=== PATIENT | female | born 1935 | race Caucasian/White ===

== ENCOUNTER 2016-07-17 11:29 | Emergency (ER) | payer MEDICARE, OTHER ==
[2016-07-17 13:51] VITALS: BP 135/62
[2016-07-17] MEDS ORDERED: HYDROcodone/ACETAMIN 5-325 MG* 1 TAB PO ONE (14:37)
--- NOTE | 2016-07-17 14:43 | UC ---
Shoulder Pain HPI - HPI Summary HPI Summary: fell onto left shoulder yesterday, slipped on ice. Progressive pain since then. Hurts to abduct in particular, but all movement hurts. No swelling or bruising. - History of Current Complaint Chief Complaint: UCUpperExtremity Stated Complaint: LEFT ARM PAIN-FALL Time Seen by Provider: 07/17/16 14:33 Hx Obtained From: Patient ?: No Onset/Duration: Gradual Onset Timing: Constant Severity Initially: Moderate Severity Currently: Moderate Character: Dull, Aching, Spasmodic, Stiffness Aggravating Factor(s): Movement, Lifting, Flexion, External Rotation Alleviating Factor(s): Rest Associated Signs And Symptoms: Positive: Weakness. Negative: Swelling, Redness , Bruising Related History: Dominant Hand Right - Risk Factors Non-Orthopedic Risk Factor: Negative DVT Risk Factors: Negative Septic Arthritis Risk Factor: Negative - Allergies/Home Medications Allergies/Adverse Reactions: Allergies Allergy/AdvReac Type Severity Reaction Status Date / Time Ibuprofen Allergy Hives Verified 07/17/16 13:42 Sulfa Antibiotics Allergy Hives Verified 07/17/16 13:42 Home Medications: Home Medications Amlodipine Besylate [Norvasc-] 10 mg PO DAILY 07/17/16 [History Confirmed ] Aspirin [Aspirin Adult Low Dose] 81 mg PO DAILY 07/17/16 [History Confirmed 09/27] Atorvastatin* [Lipitor*] 40 mg PO QPM 07/17/16 [History Confirmed 07/17/16] Cholecalciferol [Vitamin D] 1,000 unit PO DAILY 07/17/16 [History Confirmed 09/27] Lipoflavinoid 2 tab PO BID 07/17/16 [History] Olmesartan (NF) [Benicar (NF)] 40 mg PO DAILY 07/17/16 [History Confirmed ] PMH/Surg Hx/FS Hx/Imm Hx - Additional Past Medical History Additional PMH: RA Cardiovascular History Of: Reports: Hypertension - Surgical History Surgical History: Yes Surgery Procedure, Year, and Place: hysterectomy. 10 D&C. appy - Family History Known Family History: Positive: Hypertension, Other - RA - Social History Occupation: Retired Lives: With Family Alcohol Use: None Substance Use Type: None Smoking Status (MU): Never Smoked Tobacco Review of Systems Constitutional: Negative Skin: Negative Eyes: Negative ENT: Negative Respiratory: Negative Cardiovascular: Negative Gastrointestinal: Negative Genitourinary: Negative Motor: Negative Neurovascular: Negative Musculoskeletal: Arthralgia - left shoulder, Decreased ROM, Myalgia Neurological: Negative Psychological: Negative All Other Systems Reviewed And Are Negative: Yes Physical Exam Triage Information Reviewed: Yes Appearance: Well-Appearing, No Pain Distress, Well-Nourished Vital Signs: Initial Vital Signs Temp 97.3 F 07/17/16 13:46 Pulse 87 07/17/16 13:46 Resp 20 07/17/16 13:46 BP 135/62 07/17/16 13:46 Pulse Ox 100 07/17/16 13:46 Vital Signs Reviewed: Yes Eye Exam: Normal Neck exam: Normal Respiratory Exam: Normal Cardiovascular Exam: Normal Musculoskeletal Exam: Other - left shoulder tender at proximal humerus. Hurts to palpate over deltoid, also biceps tendon. Limited ROM in any direction. Normal hand sensation and mobile qa tester strength. No hand swelling Neurological Exam: Normal Psychological Exam: Normal Skin Exam: Normal Diagnostics - Laboratory Diagnostic Studies Completed/Ordered: nondisplaced fx greater trochanter humerus Shoulder Course/Dx - Differential Dx/Diagnosis Provider Diagnoses: humerus fracture Discharge - Discharge Plan Condition: Stable Disposition: HOME Prescriptions: Hydrocodone-Acetaminophen [Hydrocodone/Acetaminophen 5-325 mg] 1 - 2 tab PO Q6HR PRN #30 tab MDD 6 tab PRN Reason: Pain Patient Education Materials: Arm Fracture in Adults (ED) Referrals: Non Staff,Doctor [Primary Care Provider] - Additional Instructions: Call your Orthopedic Surgeon tomorrow. Tell him you have a "mildly impacted fracture of the greater trochanter of the humerus". Wear the sling during the day. Be careful of the pain medications, as they can be very constipated.
--- NOTE | 2016-07-17 15:04 | RAD ---
Indication: Lateral proximal LEFT humerus pain post fall last night. Comparison: None. Technique: Internal and external rotation AP and scapular Y views LEFT shoulder Report: Mildly impacted fracture at the greater tuberosity of the humerus most conspicuous on the external rotation view. Normal acromioclavicular and glenohumeral joint alignment. Mild to moderate osteophytosis at the acromioclavicular joint. Unremarkable soft tissue contours. IMPRESSION: Mildly impacted fracture of the greater tuberosity of the humerus.
== END 2016-07-17 15:28 | disposition home or self-care (01) ==
LOC: UCCORT 11:29
DX: S42.255A Nondisplaced fracture of greater tuberosity of left humerus, initial encounter for closed fracture (principal); W00.0XXA Fall on same level due to ice and snow, initial encounter; Z88.2 Allergy status to sulfonamides; Z88.6 Allergy status to analgesic agent; M06.9 Rheumatoid arthritis, unspecified; I10 Essential (primary) hypertension
CPT/HCPCS: 99203; G0463

== ENCOUNTER 2016-07-22 11:53 | Emergency (ER) | payer MEDICARE, OTHER ==
[2016-07-22 15:12] VITALS: BP 124/52
--- NOTE | 2016-07-22 15:21 | UC ---
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 10 D&C. appy - Family History Known Family History: Positive: Hypertension, Other - RA - Social History Occupation: Retired Lives: With Family Alcohol Use: None Substance Use Type: None Smoking Status (MU): Never Smoked Tobacco - Immunization History Most Recent Influenza Vaccination: March 2016 Most Recent Pneumonia Vaccination: March 2016 Review of Systems Constitutional: Negative Skin: Negative Eyes: Negative ENT: Negative Respiratory: Negative Cardiovascular: Negative Gastrointestinal: Negative Genitourinary: Negative Motor: Negative Neurovascular: Negative Musculoskeletal: Other: - right arm pain Neurological: Negative Psychological: Negative All Other Systems Reviewed And Are Negative: Yes Physical Exam Triage Information Reviewed: Yes Appearance: No Pain Distress, Well-Nourished Vital Signs: Initial Vital Signs Temp 98.6 F 07/22/16 15:06 Pulse 88 07/22/16 15:06 Resp 16 07/22/16 15:06 BP 124/52 07/22/16 15:06 Pulse Ox 94 07/22/16 15:06 Vital Signs Reviewed: Yes Eyes: Positive: Conjunctiva Clear Neck: Positive: Supple Respiratory: Positive: Lungs clear, Normal breath sounds, No respiratory distress Cardiovascular: Positive: RRR, No Murmur Bowel Sounds: Positive: Present Musculoskeletal: Positive: Other: - RUE- in sling- refuses exam Neurological: Positive: Alert Psychological: Positive: Normal Response To Family Skin Exam: Normal Course/Dx - Course Course Of Treatment: ISTOP referenced no other narcotics except previous RX from urgent care - Differential Dx - Multi-Symptom Provider Diagnoses: medication refill. pain from previously fx humerus Discharge - Discharge Plan Condition: Stable Disposition: HOME Prescriptions: Hydrocodone-Acetaminophen [Hydrocodone/Acetaminophen 5-325 mg] 1 tab PO Q6HR PRN #40 tab MDD 6 PRN Reason: Pain - Moderate Patient Education Materials: Arm Fracture in Adults (ED) Referrals: Non Staff,Doctor [Primary Care Provider] - [facility] [place] [facility] [Outside] Additional Instructions: followup with your quality review specialist
== END 2016-07-22 15:34 | disposition home or self-care (01) ==
LOC: UCCORT 11:53
DX: Z76.0 Encounter for issue of repeat prescription (principal); Z88.2 Allergy status to sulfonamides; Z88.6 Allergy status to analgesic agent
CPT/HCPCS: 99212; G0463